=== PATIENT | male | born 1965 | race Caucasian/White ===

== ENCOUNTER → 2020-12-18 | Outpatient (CLI) | payer MEDICARE, OTHER ==
[~2020-12-18] MED LIST: ALDACTONE25 MG PO; ASPIRIN81 MG PO; ATORVASTATIN CA80 MG PO; BIKTARVY 50-201 EACH PO; CARVEDILOL3.125 MG PO; CLARITIN10 M2 PO; CYMBALTA30 MG PO; DULOXETINE HCL30 MG PO; EMTRICITABINE PO; HYDROXYZINE HCL25 MG PO; IMDUR ER TAB 6060 MG PO; ISOSORBIDE DINI30 MG PO; KAPSPARGO SPRI200 MG PO; LIPITOR80 MG PO; LISINOPRIL30 MG PO; LOSARTAN POTASS25 MG PO; METFORMIN HCL500 MG PO; MONTELUKAST SOD10 MG PO; NORCO 7.5-3251 EACH PO; PLAVIX75 MG PO; PROAIR DIGIHAL90 MCG INH; ST. JOSEPH ASPI81 MG PO; TENOFOVIR ALAFENAMIDE PO; TRULICITY0.75 MG/0. SQ; VITAMIN D31250 MCG PO
== END ==
LOC: KOH-I 12:14
DX: R93.5 Abnormal findings on diagnostic imaging of other abdominal regions, including retroperitoneum (principal); R91.8 Other nonspecific abnormal finding of lung field
CPT/HCPCS: 71250

== ENCOUNTER → 2022-01-25 | Outpatient (CLI) | payer MEDICARE, OTHER | LOC: KOH-I 01-22 14:30 | DX: R91.8 Other nonspecific abnormal finding of lung field (principal) | CPT/HCPCS: 71250 ==